=== PATIENT | male | born 1945 | race Caucasian/White ===

== ENCOUNTER 2016-07-08 13:00 | Inpatient (IN) | payer BC, MEDICARE ==
[~2016-07-08] VITALS: Ht 177.8 cm; Wt 135.1 kg
--- NOTE | ~2016-07-08 | HP ---
PATIENT'S NAME: FERN RUBI [facility] AGE: 70 Y [address] ROOM: G6326 [place], [place] [address] LOCATION: GPCU ADMIT DATE: 07/08/2016 History & Physical DISCHARGE DATE: FAMILY PHYSICIAN: PHYSICIAN, UNKNOWN ATTENDING PHYSICIAN: NICOLAS ROGER DATE OF SERVICE: ADDENDUM: After the patient got a second dose of IV Zosyn here in our facility, the patient again developed hives in the neck, in the anterior thorax, in the abdomen, in the back, and also in the bilateral thighs. This happened during the infusion of IV Zosyn. I suspect that the patient also has anaphylactic reaction to IV Zosyn. The patient received IV linezolid around 5 p.m., and he did not have any reaction, and when the Zosyn was given, about 2/3 of the medication, the patient developed all these reactions again. Therefore, the plan will be to stop the IV Zosyn, and I already called the pharmacy to update the patient's allergy to put anaphylactic reaction to IV Zosyn, IV vancomycin, Bactrim, and lisinopril. When the patient was at the outside facility, the patient received IV Zosyn followed by IV vancomycin and then developed the anaphylactic reaction. Therefore, at that time, the only suspicion was on IV vancomycin. Right now, getting the second dose of IV Zosyn here, he developed the reaction again; therefore, IV Zosyn is also in the list of anaphylactic reaction as allergy. I also considered Bactrim as anaphylactic reaction because the patient had generalized hives and had severe hypotension while he was on Bactrim this morning even before getting IV vancomycin and IV Zosyn; therefore, Bactrim is also considered as an anaphylactic reaction. I will also consider lisinopril as an anaphylactic reaction with angioedema, because, as I mentioned before, angioedema is associated with lisinopril and this side effect can happen at any time during the course of the treatment. Therefore, to be safe, I have called the pharmacy and updated the patient list as IV vancomycin, IV Zosyn, Bactrim, and also lisinopril as an anaphylactic reaction. The plan will be to continue IV linezolid for the coverage of the MRSA. ID consult tomorrow as mentioned before, and right now, I will give him one more dose of IV Solu-Medrol 125 mg IV x1, IV Benadryl 50 mg x1, IV ranitidine 50 mg x1, and also one dose of intramuscular epinephrine 0.5 mg. Continue all the medication treatment as mentioned in the original dictation. Further plan depends on clinical course. My differential here will be: 1. Could be anaphylactic reaction secondary to Bactrim, lisinopril, vancomycin, and Zosyn. 2. Possible septic shock from the possible skin abscess or boils in his buttocks. Pending ID evaluation tomorrow. 3. Angioedema secondary to lisinopril. PATIENT'S NAME: FERN RUBI [facility] AGE: 70 Y [address] ROOM: [place] [address] [facility] ADMIT DATE: 07/08/2016 History & Physical DISCHARGE DATE: FAMILY PHYSICIAN: PHYSICIAN, UNKNOWN ATTENDING PHYSICIAN: NICOLAS ROGER 4. Bacteremia is also noted on the differential, but blood cultures are pending currently. I have already updated in person to the patient and the patient's family members about the plan of care and the updates. All questions and concerns were answered to the satisfaction. I also updated the nurse about the plan as well. Further plan depends on clinical course. NICOLAS ROGER MD CC/jahaira /[id number] D: [id number] T: [id number] HISTORY & PHYSICAL
--- NOTE | ~2016-07-08 | ECHO ---
Transthoracic Echocardiography Report (TTE) Demographics Patient Name FERN RUBI Date of Study 07/09/2016 Patient Number [id number] Visit Number [id number] Date of 1945 Room Number G6326 Accession Number [id number] Gender Male Age 70 year(s) Referring Wendy Tyler MD Greige Goods Examiner David Rowley Physician Physician Interpreting Alen Cespedes Senior Research Consultant Physician MD Supervising Ordering Physician Lauro Luna MD/IZZY BASURTO Nurse Stress Retail Store Associate Conclusions Contractility Score Summary Normal Left Ventricular contractility was noted. Summary Normal LV/RV size and systolic function. The estimated left ventricular ejection fraction is 65%. Mild septal left ventricular hypertrophy. Diastolic assessment reveals Grade II pseudonormal diastolic function. The left atrium is moderately dilated by LA volume index measurement. No significant valvular abnormalities. Procedure Type of Study TTE procedure:2D Echocardiogram, M-Mode, Doppler , Color Doppler. Procedure Date Date: 07/09/2016 Start: 07:31 AM Study Location: Inpatient Portable Technical Quality: Adequate visualization Indications:Chest pain. Appropriate Use Criteria: 9 Patient Status: Routine HR: 87 bpm BP: 124/58 mmHg M-Mode/2D Measurements LV Diastolic Dimension: 5.23 cm LV Systolic Dimension: 3.41 cm LV Septum Diastolic: 1.23 cm LV PW Diastolic: 1.06 cm AO Root Dimension: 2.9 cm Cardiac Output: 7.59 l/min LA Dimension: 4.2 cm EF Estimated: 65 % LVOT: 1.9 cm LVOT VTI: 30.8 cm RV Base: 3.4 cm LV Stroke volume: 87.28 ml RV Length: 8.22 cm TAPSE: 3.57 cm TDI-S': 22.8 cm/s Doppler Measurements AV Peak Velocity: 2.02 m/s MV Peak E-Wave: 1.1 m/s AV Peak Gradient: 16.32 mmHg MV Peak A-Wave: 0.96 m/s AV Mean Gradient: 8 mmHg MV E/A Ratio: 1.15 LVOT Peak Velocity: 1.47 m/s MV P1/2t: 63 msec TR Gradient:7.4 mmHg PV Peak Velocity: 1.08 m/s Estimated RAP:3 mmHg PV Peak Gradient: 4.67 mmHg Estimated RVSP: 10 mmHg Estimated PASP: 10.4 mmHg E' Septal Velocity: 0.08 m/s A' Septal Velocity: 0.13 m/s E' Lateral Velocity: 0.08 m/s A' Lateral Velocity: 0.12 m/s Findings Left Ventricle The left ventricle is normal in size . Mild septal left ventricular hypertrophy. Diastolic assessment reveals Grade II pseudonormal diastolic function . Right Ventricle Normal right ventricle structure and function. Left Atrium The left atrium is moderately dilated by LA volume index measurement. Right Atrium Normal right atrial size. IVC measures 1.76 cm with inspiratory collapse. Mitral Valve Trivial mitral regurgitation by color Doppler. Mild mitral annular calcification. Aortic Valve Normal aortic valve structure and function. Tricuspid Valve Trivial tricuspid regurgitation by color Doppler. Pulmonic Valve Normal pulmonic valve structure and function. Pericardial Effusion No evidence of pericardial effusion. Miscellaneous Visualized portions of the aortic root and ascending aorta appear normal in size. Pleural Effusion No evidence of pleural effusion. Contractility Score LV regional wall motion:(0-Non visualized 1-Normal 2-Hypokinesis 3-Akinesis 4-Dyskinesis 5-Aneurysm) Signature dtt: LEIDY SUAZO dtd: 07/09/16 0731 Physician Self Edit
--- NOTE | ~2016-07-08 | CON ---
PATIENT'S NAME: RUBI, [facility] AGE: 70 Y [address] ROOM: [place] [address] LOCATION: GPCU ADMIT DATE: 07/08/2016 Consultation DISCHARGE DATE: FAMILY PHYSICIAN: Marsha Walton PA-C ATTENDING PHYSICIAN: NICOLAS ROGER DATE OF CONSULTATION: 07/10/2016 REFERRING PHYSICIAN: Chase Wick MD REASON FOR CARDIOLOGY CONSULT: Chest pain. HISTORY OF PRESENT ILLNESS: This is a 70-year-old male admitted with shock and anaphylaxis after an antibiotic infusion for a left torres skin infection. This consult is requested due to the patient experiencing chest pain about 2 days ago after a recurrent episode of antibiotic reaction which needed epinephrine and dopamine infusion. During that time, he had complaints of chest pain which he described as more of a pressure substernally. He denies any sharpness, palpitations, or diaphoresis. He does have a previous history of dyspnea on exertion, shortness of breath, and diaphoresis, especially with extended exertional activities. He does not take stairs at baseline due to knee pain and back pain. Overall, at this time, he feels comfortable now, but he is also noticeably anxious during review of systems interview. Also of note, a majority of his explanations of dyspnea on exertion and difficulty with activities are presented by his daughter. One example she gives is he is unable to walk completely to the back end of the grocery store without needing to rest. PAST MEDICAL HISTORY: 1. Hypertension. 2. Obstructive sleep apnea, with CPAP use. 3. Diabetes mellitus, type 2. 4. Peripheral neuropathy. SOCIAL HISTORY: The patient has a very distant tobacco use history. He says he quit 45 years ago, and during that time, was only smoking about a quarter of a pack per day. He denies alcohol or illicit drug use. FAMILY HISTORY: There is an extensive history of cancer in his family. His father had colon cancer with metastases to his lung and brain. His mother had ovarian cancer as well as hypertension. PATIENT'S NAME: RUBI, [facility] AGE: 70 Y [address] ROOM: [place] [address] LOCATION: GPCU ADMIT DATE: 07/08/2016 Consultation DISCHARGE DATE: FAMILY PHYSICIAN: Marsha Walton PA-C ATTENDING PHYSICIAN: NICOLAS ROGER PAST SURGICAL HISTORY: 1. Cholecystectomy. 2. Knee replacement. CURRENT MEDICATIONS: 1. Aspirin 325 mg p.o. daily. 2. Benadryl 50 mg p.o. daily in the morning. 3. Glucophage 1000 mg p.o. twice daily. 4. K-Phos one tablet p.o. 3 times daily. 5. Neurontin 600 mg p.o. twice daily. 6. Pepcid 20 mg p.o. daily. 7. Prinivil 40 mg p.o. twice daily. 8. Levemir 21 units subcu daily in the evening. 9. Lovenox 40 mg subcu daily in the evening. 10. NovoLog subcu on a moderate sliding scale per a.c. and h.s. Accu-Cheks. 11. NovoLog subcu 1 unit per 15 carbs 3 times daily with meals. 12. Valisone cream topically twice daily. MEDICATION ALLERGIES: Bactrim causing anaphylaxis. REVIEW OF SYSTEMS: Pertinent positive review of systems listed in the HPI. All other review of systems evaluated and negative. PHYSICAL EXAMINATION: VITAL SIGNS: Temperature 97.1, pulse 80, respirations 19, blood pressure 171/80, and O2 saturation 96% on room air. The patient weighs 137.1 kg. SKIN: [place], warm, and dry. EYES: Sclerae are clear. No xanthelasma. ENT: Oral mucosa is pink and moist. No jugular venous distention. No carotid bruits. CHEST: Respirations are even and unlabored. LUNGS: Clear to auscultation to bilateral upper lobes. They are diminished to bilateral lower lobes. HEART: Regular rate and rhythm. Normal S1 and S2. No murmurs, rubs, or gallops. ABDOMEN: Soft and nontender. MUSCULOSKELETAL: Gait is normal. EXTREMITIES: Peripheral pulses palpable. No clubbing or cyanosis noted. Does have trace lower extremity edema present. PSYCHIATRIC: Alert and oriented. Mood and affect are appropriate, though he is notably anxious during interview. IMPRESSION AND PLAN: PATIENT'S NAME: FERN RUBI [facility] AGE: 70 Y [address] ROOM: [place] [address] LOCATION: GPCU ADMIT DATE: 07/08/2016 Consultation DISCHARGE DATE: FAMILY PHYSICIAN: Marsha Walton PA-C ATTENDING PHYSICIAN: NICOLAS ROGER Per Dr. Callejas. 1. Atypical chest pain after epinephrine and dopamine infusion for anaphylaxis. He has risk factors for coronary artery disease including hypertension, diabetes, smoking, and obstructive sleep apnea. 2. Hypertension. Currently, on Prinivil, but poorly controlled. 3. Anaphylactic shock. Initially thought to be from vancomycin, but he has ultimately been found to be allergic to Bactrim. He is currently on a steroid taper and under the care of the Hospitalist Service. 4. Diabetes mellitus, type 2. 5. Obstructive sleep apnea. Once again, this is a 70-year-old male who was admitted with anaphylactic shock with systolic blood pressures down to the 60s. He did develop chest pain after a second episode of anaphylaxis and needing epinephrine and dopamine. The patient has had shortness of breath on exertion which likely could be attributed to his obesity. He has coronary artery disease risk factors including diabetes, obesity, and hypertension. The risks and benefits of cardiovascular workup discussed between Dr. Callejas, the patient, and his family members. Plan will be to proceed with a nuclear treadmill stress test to fully evaluate myocardial perfusion imaging. We will make further recommendations pending the results of this test. We will continue to monitor, evaluate, and treat as appropriate. Thank you Dr. Rutledge for this consult. Thank you for allowing [facility] to interact in the care of this patient. VASILIY LUNA APRN FOR MD CARRI DOWLING/jahaira /[id number] d: 07/11/16 1617 t: 07/28/16 0928, CONSULTATION REPORT
--- NOTE | ~2016-07-08 | ESTC ---
Cardiac Perfusion Imaging Demographics Patient Name ELICIA José Gender Male Patient Number [id number] Race Visit Number [id number] Ethnicity Corporate ID Room Number G6326 Accession Number [id number] Height 70 inches Date of 1945 Weight 291 pounds Vivek Interpreting TOBY Gonzalez Date of study 07/11/2016 Physician Britta Doyle Supervising /IZZY BROWN Technologist Nahid Doyle Ordering Physician Stress Sussy Archibald general service technician RDCS, RVT Stress ECG Reading Britta Nurse Ernesto Caballero RN Physician Vivek The procedure was explained in detail to the patient. Risks, complications and alternative treatments were reviewed. Written consent was obtained. Medications Reviewed with Patient prior to Procedure. Procedure Procedure Type: Nuclear Stress Test:Exercise, Cardiolite Stress Test Procedure Start time: 07/11/2016 00:00 Indications: Palpitations and Chest pain. Risk Factors The patient risk factors include:obesity, former tobacco use, treated hypertension and insulin treated diabetes mellitus. Conclusions Summary Perfusion Images: The overall quality of the study is fair, due to gastrointestinal tracer uptake. Left ventricular cavity is noted to be normal on the stress and normal on the rest images. There is no evidence of abnormal lung activity. The right ventricle is not visualized an cannot be assessed. Impression ECG portion of lexisan stress test is clinically negative for ischemia by diagnostic criteria. Myocardial perfusion imaging is essentially normal, no significant perfusion defects suggestive of ischemia/infarct. Overall left ventricular systolic function was normal without regional wall motion abnormalities. Calculated LVEF is 60% and TID ratio is 1.16. There are no previous studies for comparison. Stress Protocols Resting ECG Normal sinus rhythm. Resting HR:96 bpm Resting BP:193/89 mmHg Pre-stress physical exam: Patient assessed by Dr Morgan prior to testing. Stress Protocol:Pharmacologic Predicted HR: 151 bpm ECG Findings No ECG changes suggestive of ischemia. Arrhythmias No rhythm abnormality. Symptoms Chest tightness Stress Interpretation Appropriate hemodynamic response to Lexiscan. No significant ST-T wave changes with Lexiscan. ECG portion is negative for ischemia by diagnostic criteria. Imaging Results Summed scores - Summed stress score: 7 - Summed rest score: 6 - Summed difference score: 1 Stress ejection Ejection fraction:60 % EDV :154 ml ESV :62 ml Stroke volume :92 ml LV mass :173 gr Imaging Protocols Rest Stress Isotope:Tc99m Sestamibi IV Isotope: Tc99m Sestamibi IV Isotope dose:15.2 mCi Isotope dose:43.9 mCi Date:07/11/2016 07:18 Date:07/11/2016 09:18 Technique: SPECT Technique: Gated Supine SPECT Supine IV remains in place after procedure. Scan Time:30 minutes post injection Scan Time:45-60 minutes post injection Procedure Medications - Regadenoson (Lexiscan) 0.4 mg IV over 10-15 sec. I.V. 0.4 mg. Medical History Admission Data Admission date: 07/08/2016 Admission Time: 13:26 Hospital Status: Inpatient. Signatures dtt: VIVEK MORGAN dtd: 07/11/16 0000 Physician Self Edit
--- NOTE | ~2016-07-08 | DS ---
PATIENT'S NAME: FERN RUBI [facility] AGE: 70 Y [address] ROOM: G6[address] [place], [place] [address] LOCATION: GPCU ADMIT DATE: 07/08/2016 Discharge Summary DISCHARGE DATE: 07/11/2016 FAMILY PHYSICIAN: Marsha Walton PA-C ATTENDING PHYSICIAN: Milton Nguyen FINAL DIAGNOSES: 1. Anaphylactic reaction to Bactrim. 2. Atypical chest pain. 3. Diabetes mellitus type 2, insulin using. 4. Essential hypertension. 5. Acute kidney injury. 6. Chronic hypoxic respiratory failure. Please see the history and physical dictated by Dr. Nguyen for details of admission. LABORATORY DATA: On admission, sodium 133, discharge 134; potassium on admit 5.1, discharge 4.5; BUN on admission was 30, discharge 30; and creatinine on admission was 2, discharge 1. Cholesterol was 110, triglycerides 78, HDL 38, and LDL 57. Hemoglobin A1c 7.2. C-reactive protein 3.28, complement 23. White blood cell count on admission was 15.9 with increased neutrophils, hemoglobin 13.7, hematocrit 40.8, and platelet count 310. PTT 24, pro time 11.4, and INR 1. Sedimentation rate was 11. Urinalysis did not show any evidence of infection. Urine and blood cultures were negative. DIAGNOSTIC DATA: X-ray Data: Chest x-ray on admission did not show any acute changes. Cardiology Data: Echocardiogram done on admission showed the ejection fraction was 65%. Had diastolic dysfunction. HOSPITAL COURSE: The patient was accepted in transfer from [place] with anaphylactic reaction and shock. He was hypotensive there and received large amounts of fluids. Here, he had received 3 different medications, but it was felt that most likely he was allergic to Bactrim. He was started on broad- spectrum antibiotics in case he did have a septic shock. He received significant IV fluids and did receive IV Solu-Medrol. He had during one of the times when his pressure was low, he had received epinephrine at that time, and EKG did show that he had some mild ST depression. Infectious Disease did see him, they stopped all the antibiotics as Dr. Wick from Infectious Disease did not feel that he had an active infection and also felt that the infection was most likely due to Bactrim and not the other medications. He removed those allergies from the list. It was also felt that by myself that he did not have a lisinopril allergy and this was restarted. He was taken over to oral prednisone and placed on a taper. His lisinopril was restarted, PATIENT'S NAME: FREN RUBI [facility] AGE: 70 Y [address] ROOM: [place] [address] LOCATION: GPCU ADMIT DATE: 07/08/2016 Discharge Summary DISCHARGE DATE: 07/11/2016 FAMILY PHYSICIAN: Marsha Walotn PA-C ATTENDING PHYSICIAN: Milton Nguyen he was given a dose of Lasix and he was started back on his metformin. Because of the changes in his EKG and the ST depression was felt, that he might benefit from Cardiology evaluation. He was seen in consultation by Dr. Callejas who did feel that it would be prudent to proceed with a stress test. The patient underwent initially a Stanton protocol treadmill on the morning of the , but it did need to be converted to a Lexiscan. That was read as no evidence of ischemia by Dr. Callejas. This was discussed with the family and it was felt that the patient was stable for discharge to home. DISCHARGE INSTRUCTIONS: He is to follow up with Marsha Wlaton, his PCP, at [place] in 3-5 days. He is to follow a diabetic diet. DISCHARGE MEDICATIONS: He is on, 1. Aspirin 325 mg daily. 2. Diprosone cream to his affected area twice daily. 3. Neurontin 600 mg twice a day. 4. Basaglar 42 units subcu at bedtime. 5. Lisinopril 40 mg twice daily. 6. Glucophage 1000 mg twice a day. 7. Metoprolol 100 mg at bedtime. 8. Prednisone 20 mg a day through July 12, then 15 mg a day from July 13 through July 14, then 10 mg daily from July 15 through July 16, and then 5 mg from July 17 through July 18, at which time, it will be stopped. 9. Amaryl 4 mg at bedtime. 10. Voltaren 1% gel one apply topically 4 times a day as needed. 11. Lasix 40 mg daily. 12. CPAP at night. 13. Percocet 10/325 one to two every 4 hours as needed for pain. 14. Amoxicillin 2 g prior to dental treatments. 15. Saw palmetto 1000 mg twice daily. 16. Vitamin C 1000 mg daily. 17. Multivitamin daily. 18. Glucosamine chondroitin 2 tablets daily. He was informed of his sulfa allergy and did voice understanding. SHAWNA RAMIREZ MD LAW/modl /[id number] PATIENT'S NAME: FERN RUBI [facility] AGE: 70 Y [address] ROOM: [place] [address] [facility] AD[facility] DATE: 07/08/2016 Discharge Summary DISCHARGE DATE: 07/11/2016 FAMILY PHYSICIAN: Marsha Walton PA-C ATTENDING PHYSICIAN: Milton Nguyen CC: Marsha Walton PA-C d: 07/12/16 0302 t: 07/22/16 1202, DISCHARGE SUMMARY
--- NOTE | ~2016-07-08 | HP ---
PATIENT'S NAME: FERN RUBI [facility] AGE: 70 Y [address] ROOM: [id number] [place], [place] [address] LOCATION: GPCU ADMIT DATE: 07/08/2016 History & Physical DISCHARGE DATE: FAMILY PHYSICIAN: PHYSICIAN, UNKNOWN ATTENDING PHYSICIAN: NICOLAS ROGER DATE OF SERVICE: CHIEF COMPLAINT: Generalized hives and skin boils in the buttocks and left anterior torres. HISTORY OF PRESENT ILLNESS: This is a 70-year-old male, who says that back in January 2016, the patient has developed this left anterior torres boil, which was draining pus and was tender, red, and swollen. The patient was seen in [place], [place], outside facility. At that time, the patient had incision and drainage and grew MRSA. The patient was treated with Bactrim. It later resolved. However, April of this year, the patient developed boils again, but this time in the buttocks, 2 on the right side 1 one on the left side, also was draining pus and was also cultured after incision and drainage to grow MRSA again, and he was put on Bactrim again. He got better again, but the right-side buttock boil came back just last Thursday, was draining again some pus, and last Thursday, the patient went back to [place], [place], and he was put back on Bactrim, but at that time, they did not perform any incision or drainage. The patient has been taking Bactrim since last Thursday, and he has noticed a significant improvement without any more drainage. Still some pain in that area with touch. The story is that last night, he suddenly noticed that in his left anterior medial side of the left knee, there is a tiny spot of hives, which he describes itchy and tender and red and swollen. He did not give it much attention because he thought it would just go away by itself. This morning, he woke up; after taking a shower, he developed diffuse hives, described by the patient over the body except the face or the neck and also in both hands and both legs. The hives were itchy, red, and swollen, but they were not tender. The patient has no idea of what happened. He denies any new medication or any new food. He denies any allergy to any medication or food also. He has been taking lisinopril when I checked his chart, has been taking that for long time, but bear in mind that lisinopril can still cause angioedema and give hives, no matter how long the patient has been taking lisinopril. The patient last time he took lisinopril was actually yesterday. Today, he has not taken it yet. Because of the diffuse hives, the patient went to the [place], [place] again for evaluation today. Upon arrival over there, blood pressure was found to be very low in the low PATIENT'S NAME: FERN RUBI [facility] AGE: 70 Y [address] ROOM: [address] [address] LOCATION: [facility] ADMIT DATE: 07/08/2016 History & Physical DISCHARGE DATE: FAMILY PHYSICIAN: PHYSICIAN, UNKNOWN ATTENDING PHYSICIAN: NICOLAS ROGER 60s, and heart rate surprisingly was also low in the 55 instead of a tachycardia in the setting of hypotension. The patient got 1 L of normal saline bolus and then followed by 2 more L to keep the blood pressure high in the 130s. Heart rate improved to 73 after 3 L bolus. Blood work was also remarkable for leukocytosis of 15,000 of white blood cells, lactic acid 32.8, and ANTHONY with a creatinine of 1.54, GFR was 45 with a potassium 5.3, bicarbonate 20, BUN of 25. The patient was also given one dose of IV vancomycin, one dose of IV Zosyn. When IV Zosyn was given, the patient did not have any reaction. However, when the IV vancomycin was given, the patient's lips and also eyelid became swollen and puffy, but he denies any tongue swelling or any shortness of breath or drooling or any dysphagia. The rash with hives all over the body actually got better by the time he got to the emergency room over there without even getting any medication. The hives were also still present but was getting better after the vancomycin was given, and then, I was contacted by the outside facility for transfer and for next step in management. I recommended them to give one dose of IV Solu-Medrol 125 mg IV, IV ranitidine 50 mg IV x1, and IV Benadryl 50 mg IV x1, and also give the patient one dose of intramuscular epinephrine 0.5 mg if not improved. Also, normal saline maintenance at 150 mL/h. The patient received all the medication except epinephrine intramuscular, and his hives got much much better to almost total resolution. His lip swelling also improved to almost normal. His eyelid swelling also improved but not yet resolved. The patient was later transferred here for higher level of care. REVIEW OF SYSTEMS: As mentioned in the history of present illness. All other systems reviewed and negative except those mentioned in the history of present illness. PAST MEDICAL HISTORY: From the medical records: 1. Diabetes type 2. 2. Hypertension. 3. Obstructive sleep apnea, on home CPAP. He is not sure what setting. 4. Peripheral neuropathy from diabetes type 2. 5. He denies any coronary artery disease and also denies any asthma or COPD. ALLERGIES: NO KNOWN DRUG ALLERGIES, BUT RIGHT NOW, THE PATIENT DOES HAVE ALLERGY TO VANCOMYCIN. THEREFORE, VANCOMYCIN WILL BE HIS ALLERGY WITH ANAPHYLAXIS THE ALLERGIC REACTION. LISINOPRIL WILL ALSO BE POSSIBLY ANOTHER CAUSE OF THE ALLERGY OF THE ANGIOEDEMA. SOCIAL HISTORY: PATIENT'S NAME: FERN RUBI [facility] AGE: 70 Y [address] ROOM: [place] [address] [facility] ADMIT DATE: 07/08/2016 History & Physical DISCHARGE DATE: FAMILY PHYSICIAN: PHYSICIAN, NAYE ATTENDING PHYSICIAN: NICOLAS ROGER The patient was a former cigarette smoker. He quit about 45 years ago. He used to smoke about half pack per day for 5 years only. He denies any alcohol or any illegal drug use. FAMILY HISTORY: Father from colon cancer with metastasis to the lungs and to the brain at advanced age. Mother from ovarian cancer and had hypertension. PAST SURGICAL HISTORY: 1. Status post cholecystectomy. 2. Status post total knee replacement. HOME MEDICATIONS: Currently have been reconciled. PHYSICAL EXAMINATION: VITAL SIGNS: At the time of my dictation, temperature 99.5, heart rate 71, respiration 18, blood pressure 139/59, saturation 95% on 2 L nasal cannula and pain 0/10. GENERAL APPEARANCE: Alert and oriented x3, in no acute distress. HEENT: He does have periorbital edema in both eyes. Visual field intact. Anicteric sclerae. Pupils equally round and reactive to light. Nasal turbinates are normal bilaterally. Moist oral mucosa. No tongue swelling. No lips swelling. The only facial edema I could appreciate is the periorbital edema. NECK: No JVD. No cervical lymphadenopathy. RESPIRATORY: Clear. CARDIOVASCULAR: regular rate and rhythm. Normal S1, S2. No murmur. No rubs. No gallops. ABDOMEN: Obese, soft, nontender, nondistended, normal bowel sounds, no hepatosplenomegaly. EXTREMITIES: No edema in upper or lower extremities. SKIN: He has a healed known draining boil in the left anterior torres. Does not look infected. It is nontender. It is not erythematous. There is no drainage. The boil is not open. It looks healed. In his buttock, there is erythema in the right side of the buttock with 2 known draining boils that are intact, and there is no active drainage. No open sore. They do not look infected. Mildly tender to palpation. The left buttock has 1 boil of the same finding. The hives in the body have already resolved. NEUROLOGICAL: Grossly nonfocal. MUSCULOSKELETAL: No joint pain and no muscle pain. Range of motion intact. LABORATORY DATA: Lactic acid 3.1, white blood cell 15.9, hemoglobin 13.7, hematocrit 40.8, MCV PATIENT'S NAME: FERN RUBI [facility] AGE: 70 Y [address] ROOM: [id number] [place] [address] LOC[facility]: [facility] ADMIT DATE: 07/08/2016 History & Physical DISCHARGE DATE: FAMILY PHYSICIAN: PHYSICIAN, UNKNOWN ATTENDING PHYSICIAN: NICOLAS ROGER 87.9, platelet 310. Glucose 232, BUN 30, creatinine 2.0, sodium 133, potassium 5.1, chloride 102, CO2 of 21, calcium 8.1. Total protein 6.9, albumin 3.6, AST 16, ALT 35, alkaline phosphatase 66, total bilirubin 0.3, direct bilirubin 0.1, phosphorus 2.4. GFR 33. Anion gap 15.1. INR 1.0. APTT 24. Procalcitonin 0.18. IMAGING STUDIES: Chest x-ray on admission shows normal chest x-ray. ASSESSMENT AND PLAN: 1. Shock: Etiology here is wide and not clear at the moment. My differential for him will be, first one will be possibly anaphylaxis reaction from the vancomycin. For that reason, I am going to discontinue vancomycin and treat with p.o. prednisone 60 mg starting tomorrow given that he already got IV Solu-Medrol 125 today. I will give him one more dose of IV Benadryl 50 mg and also one dose of IV ranitidine 50 mg right now for itchiness around his neck. I will do p.o. Benadryl and p.o. ranitidine starting tomorrow. Monitor the vital signs very closely every 4 hours. I already explained in detail to the patient about symptoms of anaphylaxis and asked him to let us know. If that happens again, the patient will be requiring another dose of intramuscular epinephrine 0.5 mg. I already gave him 2 doses of epinephrine intramuscular 0.5 mg here, and hives and edema in the lips have already resolved. Monitor airway and oxygen saturation very closely every 4 hours. Keeping on oxygen nasal cannula to keep the saturation more than 94%. Second differential will be septic shock from the skin abscess or skin boils in the buttocks and in the left anterior torres. For that, given that the patient does have leukocytosis and was hypotensive upon arrival over there and was still on Bactrim for the skin boil in the buttocks, it could raise concern for septic shock from the skin boils from MRSA. Given that he has anaphylaxis to vancomycin, I am going to cover him with IV Zosyn and IV linezolid. I will put ID consult tomorrow. Blood culture 2 sets have been obtained. Urinalysis and urine culture will be ordered as well. Repeat labs tomorrow morning. There is no drainage. Therefore, I cannot do any wound culture or gram stain at the moment. I do not really appreciate any fluctuation in the boils and boils are intact and seemed to be resolving. However, I could still not rule out any abscess underneath. I will consult ID tomorrow for their opinion and further recommendation. Either way, he has been covered right now for the MRSA with Linezolid, and in addition, he is getting IV Zosyn for the gram-negative coverage as well. My third differential could be from the lisinopril causing angioedema and anaphylaxis reaction. I will hold off on lisinopril and choose amlodipine if necessary for hypertension. I will check the complement level C4 in the blood to see if is hereditary angioedema from ACEI induced. PATIENT'S NAME: FERN RUBI [facility] AGE: 70 Y [address] ROOM: [id number] [place], [place] [address] LOC[facility]: [facility] ADMIT DATE: 07/08/2016 History & Physical DISCHARGE DATE: FAMILY PHYSICIAN: PHYSICIAN, UNKNOWN ATTENDING PHYSICIAN: NICOLAS ROGER Next differential could be from some allergic reaction to something that is not yet identified given that his generalized hives happened this morning even before he was getting the IV vancomycin, and he also denies any new medication or any new food intake. Either way, treatment for anaphylasix is the same. Further plan depends on clinical course. Bactrim that he was using could also cause his anaphylaxis reaction as well. 4. Regarding his diabetes, continue the home insulin with the long-acting, but I will cut down by half and put on the insulin sliding scale with aspart low-dose a.c. and h.s. and titrate as necessary. 5. Regarding his obstructive sleep apnea, on CPAP: The patient does not remember his home setting. I will keep him on oxygen nasal cannula at night. 6. Deep venous thrombosis prophylaxis. He will be getting Lovenox subcu. 7. Regarding his acute kidney injury: I will give him IV fluids maintenance right now running at 100 mL/h. He already got 3 L bolus from outside. Check the kidney function again in the morning. I will be checking urine electrolytes also to assess the acute kidney injury etiology. I will put a Farr in him as well to monitor urine output and also to rule out postobstructive acute kidney injury cause. Likely, acute kidney injury is from the hypotension from the prerenal from hypovolemia and also from bactrim use. CODE STATUS: He is a full code. Time spent on the day of admission 45 minutes including chart review, interviewing and examining the patient, addressing all the questions and concerns the patient had, and going over the plan of care with the patient, the patient family members, and nurses at the bedside. NICOLAS ROGER MD CC/modl /[id number] D: [id number] T: [id number] HISTORY & PHYSICAL
--- NOTE | ~2016-07-08 | CON ---
PATIENT'S NAME: ELICIA [facility] AGE: 70 Y [address] ROOM: [place] [address] LOCATION: GPCU ADMIT DATE: 07/08/2016 Consultation DISCHARGE DATE: FAMILY PHYSICIAN: Marsha Walton PA-C ATTENDING PHYSICIAN: NICOLAS ROGER DATE OF CONSULTATION: 07/09/2016 REFERRING PHYSICIAN: Anastasiya Mckeon MD REASON FOR EVALUATION: Allergic reaction and MRSA infection. CHIEF COMPLAINT: The patient states that he got a rash. HISTORY OF PRESENT ILLNESS: Mr. Rubi is a 70-year-old man who seems to have some chronic allergic type issues. He states that he has had some intermittent on and off foot swelling and dry itchy skin. In any event, he has had some recurrent skin infection issues on the legs and buttocks with MRIs. He has received a few rounds of antibiotics for this. He did receive some Bactrim, things went away. However, he had some return of the boil and was again started on Bactrim, it improved. Unfortunately, he developed some rash while on the Bactrim, this spread. He presented to outside hospital. He was found to have a low blood pressure. He received broad-spectrum antibiotics for possible infection. He was noted to have some worsening of rash and swelling. He was transferred here. Still on and off development and resolution of hives. Along the way, he has now been tagged with allergies to Bactrim, lisinopril, vancomycin, Zosyn. He is doing better. He wants the Farr catheter out. I am asked to evaluate. PAST MEDICAL HISTORY: Significant for high blood pressure, TRUPTI on CPAP, neuropathy, diabetes. ALLERGIES: TO BACTRIM. HE HAS BEEN LISTED WITH OTHER THINGS, BUT I AM NOT CERTAIN ABOUT THIS. SOCIAL HISTORY: Positive for some tobacco use but he quit decades ago, short course. No alcohol or drug use. FAMILY HISTORY: Positive for cancer. PAT[facility] AGE: 70 Y [address] ROOM: [place] [address] LOCATION: GPCU ADMIT DATE: 07/08/2016 Consultation DISCHARGE DATE: FAMILY PHYSICIAN: Marsha Walton PA-C ATTENDING PHYSICIAN: NICOLAS ROGER REVIEW OF SYSTEMS: Pertinent positives include: GENITOURINARY: The patient does not like Farr catheter. INTEGUMENTARY: The patient with these skin infection issues and the patient denies other symptoms. Remainder of a complete review of systems is otherwise negative. PHYSICAL EXAMINATION: GENERAL: The patient is sitting up in bed, in no acute distress, appears nontoxic. HEENT: The patient is anicteric. No conjunctival lesions noted. EARS, NOSE, THROAT, OROPHARYNX: Has no thrush. CARDIOVASCULAR: Heart is regular rate and rhythm. RESPIRATORY: Breathing is easy, unlabored. Lungs are clear bilaterally. GASTROINTESTINAL: Abdomen soft, nontender. Normoactive bowel sounds are present. LYMPHATIC: No cervical lymphadenopathy. MUSCULOSKELETAL: No effusions of fingers, wrists, elbows, shoulders, or knees. INTEGUMENTARY: The patient with some healed skin lesions on the legs. No evidence of active infection there. He does have a little bit of induration on the left medial buttock, it is not fluctuant, it is not very tender. There is no cellulitis there. He does have some fading rash. He also has dry skin. ASSESSMENT AND RECOMMENDATIONS: 1. 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 I do not think anything requires active treatment at this time. The linezolid will be discontinued. I have counseled him on other skin care possibilities (Hibiclens rinses, bleach baths) as well as different soaps he can use to try to combat these in the future. He is currently using Zest soap which is very drying to the skin and may make skin infections more likely. He may try changing to a more moisturizing soap. 2. Various allergies the fact that he was having an allergic reaction to one agent which was still in his system means that development of hives cannot necessarily be attributed to a second medication. The chance of him having true allergic reaction, developing three different classes of antibiotics within a 24-hour. He is statistically quite improbable. I will remove the vancomycin and Zosyn from his allergy list. He will remain with Bactrim on his allergy list as this was the inciting agent. Thank for allowing me to participate in the care of Mr. Rubi. ANASTASIYA MCKEON MD PATIENT'S NAME: FERN RUBI [facility] AGE: 70 Y [address] ROOM: [address] [address] [facility] ADMIT DATE: 07/08/2016 Consultation DISCHARGE DATE: FAMILY PHYSICIAN: Marsha Walton PA-C ATTENDING PHYSICIAN: NICOLAS ROGER/jahaira /[id number] d: 07/09/16 1848 t: 07/10/16 0805, CONSULTATION REPORT
[~2016-07-08 13:00] MED LIST: AMARYL4 MG PO; CPAP INH; GLUCOPHAGE1000 MG PO; LANTUS SOL100 UNIT/1 SUB-Q; LASIX40 MG PO; LOPRESSOR100 MG PO; NEURONTIN600 MG PO; PERCOCET 10-321 EACH PO; VOLTAREN 1% GE100 GM TOP; ZESTRIL40 MG PO
[2016-07-08] MEDS ORDERED: BACTRIM DS1 TAB PO (14:13)
[2016-07-08] MEDS ORDERED: AMOXICILLIN500 M1 PO (14:14)
[2016-07-08] MEDS ORDERED: VITAMIN C1000 MG PO (14:16)
[2016-07-08] MEDS ORDERED: SAW PALMETTO500 MG PO (14:16)
[2016-07-08] MEDS ORDERED: ASPIRIN325 MG PO (14:17)
[2016-07-08] MEDS ORDERED: BASAGLAR K100 UNIT/1 SUB-Q (14:17)
[2016-07-08] MEDS ORDERED: THERAGRAN-M1 TAB PO (14:17)
[2016-07-08] MEDS ORDERED: GLUCOSAMIN-CHO1 EACH PO (14:19)
[2016-07-08] MEDS ORDERED: DIPROSONE CREAM15 GM TOP (14:22)
--- NOTE | 2016-07-08 14:30 | NUR ---
70 Y/O MALE ADMITTED FOR POSSIBLE SEPSIS. PT WAS TRANSPORTED FROM [place], [place]. PT IS A&OX3. ABLE TO MOVE ALL EXTREMITIES. ALLERGY - VANCOMYCIN = FACIAL SWELLING IN LIPS, AROUND EYES, AND SWELLING NOTED IN HANDS. MEDICAL & SURGICAL HISTORY - DMII-MEDS, MOST RECENT AIC WAS MAY @ 7.3 PT STATES. PT HAS A RECENTLY HEALED WOUND THAT STILL HAS A SMALL SCAB NOTED ON LT LOWER LEG. PT STATED THAT IN APRIL IT HAD CULTURED OUT WIHT MRSA. HTN, SLEEP APNEA, HOME C-PAP, ARTHRITIS, DJD, GERD, HEARTBURN, NOCTURIA, URINARY FREQUENCY HOWEVER DIFFICULTY WITH URINE STREAM. FORMER SMOKER, QUIT IN 1970. 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 BILAT DIABETIC RETINOPATHY, BONI, LTA, RT MENISCAL TEAR, LUMBAR SURGERY, RT ULNAR NERVE TRANSPOSITION. REPORT GIVEN TO PT PRIMARY CARE NURSE ROGELIO COX ADM EDUCATION COMPLETED.
[2016-07-08 14:36] LABS: BASOPHIL % 0.3 %; EOSINOPHIL % 0.1 %; HEMATOCRIT 40.8 % (37.0-53.0); HEMOGLOBIN 13.7 g/dL (11.0-16.0); IMMATURE GRANULOCYTE # 0.3 K/uL (0.0-0.3); IMMATURE GRANULOCYTE % 1.6 %; LYMPHOCYTE # 1.2 K/uL (0.8-4.0); LYMPHOCYTE % 7.6 %; MCH 29.5 pg (27.0-34.0); MCHC 33.6 gm/dL (32.0-36.5); MCV 87.9 fl (83.0-98.0); MONOCYTE # 0.2 K/uL (0.0-1.0); MONOCYTE % 1.4 %; MPV 9.8 fl (9.4-12.4); NEUTROPHIL # (ANC) 14.2 K/uL (1.4-9.0); NRBC % 0 /100WBC (0-0.00); PLATELET COUNT 310 K/uL (150-450); RBC 4.64 M/uL (3.50-5.50); RDW-CV 13.5 % (11.9-14.6); WBC 15.9 K/uL (4.0-11.0)
[2016-07-08 14:45] LABS: INR - (THERAPEUTIC) 1.08 (0.92-1.07); PROTIME 11.4 SECONDS (9.8-11.4); PTT 24 SECONDS (25-32)
[2016-07-08 14:52] LABS: ALBUMIN 3.6 gm/dL (3.5-5.0); ANION GAP 15.1 (10.0-19.0); CALCIUM 8.1 mg/dL (8.5-10.5); PHOSPHORUS 2.4 mg/dL (2.5-4.9); POTASSIUM 5.1 mMol/L (3.7-5.1); TOTAL BILIRUBIN 0.3 mg/dL (0.0-1.5); TOTAL PROTEIN 6.9 g/dL (6.0-8.4)
--- NOTE | 2016-07-08 16:28 | NUR ---
Significant Event: A/Ox3. [id number]. P-60-90s. Afebrile. 2L NC with saturations in low to mid 90s. R) wrist IV with NS at 100m/hr. R) hand IV saline locked. Farr cath draining yellow urine, 200ml out since arrival to PCU. Generalized red welts/rash, patient states it is improving. Swelling around eyes, on lips and hands post vanco. Epinephrine IM given x2. AC/HS accuchecks. Zosyn and linzoid ATV therapy ordered. Pleasant and cooperative with cares.
[2016-07-08 16:30] LABS: BILIRUBIN URINE NEGATIVE (NEGATIVE); BLOOD URINE 50 /UL (NEGATIVE); COLOR URINE YELLOW (YELLOW); GLUCOSE URINE 250 mg/dL (NEGATIVE); KETONE URINE 5 mg/dL (NEGATIVE); LEUKOCYTES URINE NEGATIVE /UL (NEGATIVE); NITRITE URINE NEGATIVE (NEGATIVE); PROTEIN URINE NEGATIVE (NEGATIVE); TURBIDITY URINE CLEAR (CLEAR); UROBILINOGEN URINE NORMAL (NORMAL)
[2016-07-08 16:37] LABS: RBC URINE 20-50 #/HPF (NEGATIVE)
[2016-07-08 16:38] LABS: AMORPHOUS URINE 1+ (NEGATIVE); BACTERIA URINE NEGATIVE (NEGATIVE); MUCUS URINE 2+ (NEGATIVE)
[2016-07-09 00:06] LABS: CPK 63 IU/L (35-332)
[2016-07-09 03:33] LABS: HEMATOCRIT 33.5 % (37.0-53.0); HEMOGLOBIN 11.2 g/dL (11.0-16.0); MCH 29.5 pg (27.0-34.0); MCHC 33.4 gm/dL (32.0-36.5); MCV 88.2 fl (83.0-98.0); MPV 9.8 fl (9.4-12.4); RBC 3.8 M/uL (3.50-5.50); RDW-CV 13.7 % (11.9-14.6); WBC 11.9 K/uL (4.0-11.0)
[2016-07-09 03:50] LABS: CALCIUM 7.9 mg/dL (8.5-10.5); CREATININE 1.9 mg/dL (0.6-1.3)
[2016-07-09 03:52] LABS: CPK 81 IU/L (35-332)
--- NOTE | 2016-07-09 06:58 | NUR ---
Significant Event: Patient alert and oriented x3. SBP 119-140. HR 86-104. On 2L O2 during day. 3-4L when sleeping. Wears CPap at home. All other vital signs stable. Was anxious, restless, and complaining of sternal pain/burning with second assessment. Dr. Restrepo notified. Cardiac enzymes ordered and EKG done. Enzymes negative. Ativan given with relief. Benadryl, Pepcid, SoluMedrol, and Epi given per Dr. Nguyen. No increased swelling, rash, or hives. Frequently complains of itching. Lotion applied with relief. Scheduled benadryl for this morning. and daughters at bedside. Calm and cooperative with all cares. Follow up: ID to see. Cardiac enzymes this morning.
--- NOTE | 2016-07-09 11:54 | NUR ---
Introduced self and role of care management to patient and his family. He lives in [place] with his . He states that he is able to do do all his ADL's independently. He does use a cane if he thinks it may be slippery out d/t his knee replacement. His is available to assist as needed. He plans on returning home on discharge. He denies any needs at this time. Will continue to follow.
--- NOTE | 2016-07-09 15:16 | NUR ---
Diabetes Center note: 1400 Visited with patient briefly regarding A1C of 7.2 %, which patient states is up from 6.8 % this past winter. Patient is mainly concerned regarding meal plan and carb counting, family is currently not in room, but they are requesting dietary education. Discussed with primary care nurse and arrangements are being made for RD to education patient and family. Also provided the Diabetes management booklet and Survival Skills checklist for patient to complete. Discussed with patient type 2 diabetes and progression of the disease, currently patient does take 42 units of Levemir at home, but does not want to have to start taking rapid acting insulin at meal times. Patient is currently on sliding scale here, discussed risks related to diabetes with wound on left lower leg, sepsis, infection and how we can reduce risks of same (heart, eyes, kidneys and nerves) Will check on 07/10/16 to further assess educational needs related to diabetes.
--- NOTE | 2016-07-09 17:22 | NUR ---
PATIENT BROKE OUT IN RASH ALL OVER HIS BODY AGAIN THIS MORNING BEFORE HIS 0900 MEDS. AFTER APPLYING STEROID CREAM RASH WENT AWAY THE DAY WENT ON. PATIENT'S FAMILY WAS IN THE ROOM THROUGHOUT THE DAY. DAUGHTERS AND WERE HELPFUL WITH TAKING CARE OF PATIENT NEEDS. PATIENT STARTED AT FOUR LITERS OF O2 AND WAS WEANED OFF DAY WENT ON AND IS NOW ON ROOM AIR. DR. RAMIREZ ORDERED CPAP AT 16CM H20 AT NIGHT. PATIENTS DIAZ CATH WAS REMOVED AT 1400. PATIENT VOIDED ONCE SINCE CATH WAS REMOVED AND COMPLAINED OF BURNING. PATIENT HAD TWO BM'S TODAY. INFECTIOUS DISEASE CONSULTED THIS AFTERNOON AND DC'D ZYVOX, HE ALSO TOOK VANCO AND ZOSYN OFF OF ALLERGY LIST. PATIENT RECEIVED FOUR UNITS OF INSULIN AT BREAKFAST AND LUNCH FOR HIGH BLOOD SUGARS. DR. RAMIREZ STARTED PATIENT ON CARB COUNT AND INCREASED SLIDING SCALE TO MODERATE.
[2016-07-09 17:53] LABS: ANION GAP 14.6 (10.0-19.0); CALCIUM 7.9 mg/dL (8.5-10.5); CREATININE 1.4 mg/dL (0.6-1.3); POTASSIUM 4.6 mMol/L (3.7-5.1)
[2016-07-10 04:59] LABS: ALBUMIN 3.2 gm/dL (3.5-5.0); ANION GAP 11.5 (10.0-19.0); BLOOD UREA NITROGEN 30 mg/dL (6-24); CALCIUM 8.1 mg/dL (8.5-10.5); CHLORIDE 105 mMol/L (96-110); CO2 22 mMol/L (22-32); MAGNESIUM 1.9 mg/dL (1.8-2.6); PHOSPHORUS 2.4 mg/dL (2.5-4.9); POTASSIUM 4.5 mMol/L (3.7-5.1); SODIUM 134 mMol/L (135-145)
[2016-07-10 05:00] LABS: ESTIMATED GFR (MDRD EQUATION) > 60
--- NOTE | 2016-07-10 07:37 | NUR ---
Significant Event: A/0X3. TURNS SELF. 1 ASSIST WITH WALKER TO BR. AFEBRILE. VSS ON RA. CPAP AT HS. DENIES PAIN. IV TO R) WRIST HAS NS RUNNING AT 100 ML/H. VOIDS FINE. NO BM THIS SHIFT. Follow up: CONTINUE WITH PLAN OF CARE. POSSIBLY D/C HOME?
--- NOTE | 2016-07-10 10:03 | NUR ---
PT AND FAMILY SEEN FOR QUESTIONS REGARDING DIABETIC DIET. QUESTIONS ADDRESSED REGARD CARBS ALLOWED PER MEAL AND WT LOSS. PHONE # [email or web address], ENCOURAGED TO CALL W/ QUESTIONS.
--- NOTE | 2016-07-10 15:37 | NUR ---
Diabetes center note; 1300 and 1600 Visited with patient and family members regarding diabetes and importance of proper control of blood sugars. Assessment form completed and placed on chart, answered all questions and provided a health snack list for reinforcement teaching which RD this a.m. Family are very supportive and a Medic idenification necklace is given to patient. Patient is encouraged to increase frequency of testing blood sugars at home, from once per day, only in a.m. to twice per day, once fasting and then again 2 hours after a meal. Patient states that he takes Levemir insulin and does not ever want to start having to take meal time insulin. He voices concern over cost on insulin and supplies. Even though there are no orders for meal time insulin at this time upon dismissal, HARRYE did give him a voucher for Fara insulin if needed for a future insulin order. All appreciate assistance that [facility] provides.
[2016-07-10 16:55] LABS: BILIRUBIN URINE NEGATIVE (NEGATIVE); BLOOD URINE NEGATIVE /UL (NEGATIVE); GLUCOSE URINE 250 mg/dL (NEGATIVE); KETONE URINE NEGATIVE (NEGATIVE); LEUKOCYTES URINE NEGATIVE /UL (NEGATIVE); NITRITE URINE NEGATIVE (NEGATIVE); PROTEIN URINE NEGATIVE (NEGATIVE); SPEC GRAVITY URINE 1.005 (1.003-1.035); UROBILINOGEN URINE NORMAL (NORMAL)
[2016-07-10 16:59] LABS: COLOR URINE STRAW (YELLOW); TURBIDITY URINE CLEAR (CLEAR)
--- NOTE | 2016-07-10 17:16 | NUR ---
Significant Event: AFEBRILE. HR 70-80'S. SPB 160-170'S IN AM. DOWN TO 130'S AFTER LISINOPRIL RESTARTED. IV LASIX GIVEN FOR EDEMA. DENIES PAIN. STATES ITCHING & RASH "MUCH IMPROVED" TODAY. SHOWERS TODAY. AMBULATES IN HALLWAY WITH FAMILY AD KRYSTYNA. VOIDS NUMBEROUS TIMES POST LASIX, BUT REFUSES TO MEASURE. CARDIOLOGY CONSULT TODAY- PLAN FOR STRESS TEST IN AM. BLOOD SUGARS 200-300. METFORMIN RESTARTED. UA SENT FOR C/O "BURNING". Follow up: NPO AFTER MIDNO FOR STRESS TEST. POSSIBLY HOME TOMORROW IF STRESS (-) & PATIENT CONTINUES TO IMPROVE.
--- NOTE | 2016-07-11 05:14 | NUR ---
Significant Event: DENIES PAIN ALL NIGHT. REMAINS ON ROOM AIR WHILE AWAKE AND CPAP WHILE ASLEEP. FAMILY STAYED WITH PT OVERNIGHT. NPO AFTER MIDNIGHT FOR STRESS THIS AM. RASH MOSTLY RESOLVED. STILL HAS A SMALL AMOUNT OF ITCHING ON HIS ARMS. DENIES SOB. Follow up:
--- NOTE | 2016-07-11 15:30 | NUR ---
Significant Event: Patient is alert and oriented x3. Blood pressure was elevated this AM. Morning meds given in between the stress test. Tolerating a diabetic diet. Carb count with AC/HS accuchecks. R)Hand IV, SL. Denies chest pain and states he is feeling very well. Still waiting for to read the stress test- if it is negative he will most likely go home. Up with SBA/Family assist. Does very well. Denies pain. Cooperative with cares.
[2016-07-11] MEDS ORDERED: DELTASONE20 MG PO (16:50)
--- NOTE | 2016-07-11 18:59 | NUR ---
Discharge summary: Patient is alert and oriented x3. VSS and on RA. Dismissal instructions given to patient and . Information given on blood sugars, new medications, and generalized dismissal instructions. Patient verbalized understanding and had no furthur questions at that time. IV removed. Patient transported to the [facility] for dismissal. Cooperative with [facility]
== END 2016-07-11 18:10 | disposition disaster alternative care site (69) | DRG 871 ==
LOC: GPCU 13:25
PROVIDERS: Internal Medicine; ADMIT Internal Medicine
DX: A41.02 Sepsis due to Methicillin resistant Staphylococcus aureus (principal); R65.21 Severe sepsis with septic shock; N17.9 Acute kidney failure, unspecified; E87.2 Acidosis; J96.11 Chronic respiratory failure with hypoxia; L02.429 Furuncle of limb, unspecified; E11.9 Type 2 diabetes mellitus without complications; T88.6XXA Anaphylactic reaction due to adverse effect of correct drug or medicament properly administered, initial encounter; Z68.41 Body mass index [BMI] 40.0-44.9, adult; G47.33 Obstructive sleep apnea (adult) (pediatric); L02.32 Furuncle of buttock; T37.0X5A Adverse effect of sulfonamides, initial encounter; E66.01 Morbid (severe) obesity due to excess calories; R07.89 Other chest pain; Z79.4 Long term (current) use of insulin
CPT/HCPCS: A9500; J0171; J0280; J1200; J1650; J1940; J2020; J2543; J2785; J2930; J7030; J7512